=== PATIENT | male | born 1955 | race Caucasian/White ===

== ENCOUNTER 2022-11-18 09:04 | Day surgery (SDC) | payer OTHER, SELFPAY ==
[2022-11-14 13:34] VITALS: BMI 25.1
[2022-11-18] VITALS (18 sets, daily range): BP systolic 107–157; BP diastolic 61–89; PULSE 52–101; RESP 10–20; TEMP 36.3–37.2; O2SAT 95–100; BMI 25.1
--- NOTE | 2022-11-18 | PATH_ITS ---
[facility] Accession Number: [id number] No. of containers..01 Tissue . 01 Material submitted: . prostate - PROSTATE CHIPS . 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 MRV 11/20/2022 1222 Local . 01 Electronically signed: . Janay Hand MD, Pathologist NPI- [id number] . 01 Gross description: . The specimen is received in formalin labeled with the patient's name, , and prostate chips, and consists of multiple pink to john, rubbery tissue fragments aggregating to 6.2 x 6.4 x 1.2 cm and weighing 15 grams. No discrete lesions are identified. The specimen is submitted entirely in cassettes A1-A12. ([id number]) /ARIEL 11/19/2022 0947 Local . 01 Pathologist provided ICD-10: N32.0 . 01 CPT . 170352 Specimen Comment: A courtesy copy of this report has been sent to [phone] Performed at: 01 [facility] [address] [place] [address], [place], [place] [id number] MD Gentry Youssef MD Phone: [phone]
--- NOTE | 2022-11-18 09:16 | PM.PREOP ---
Pre-operative Note COVID-19 Criteria for continued procedure: Expected advancement of disease process, Possibility delay results in more complex future surgery or treatment, Deterioration of the patient's condition or overall health, Delay expected to result in less-positive ultimate med/surg outcome and Non-surgical alternatives not available or appropriate per current SOC Interval Note History & Physical reviewed/Exam performed by Physician: Yes Changes to H&P: No
[2022-11-18] MEDS: ACETAMINOPHEN IV 1,000 MG/100 ML VIAL 400 MG IV (09:31)
[2022-11-18] MEDS: LACTATED RINGERS 1,000 ML 21 ML IV (09:32)
[2022-11-18] MEDS: CEFAZOLIN 2 GM/100 ML PREMIX 100 ML IV (09:47)
[2022-11-18 09:52] LABS: COVID19 -Nasal RAPID Negative (Negative)
[2022-11-18] MEDS: TRANEXAMIC ACID 1,000 MG in SODIUM CHLORIDE 0.9% 100 ML 200 MG IV (10:05)
--- NOTE | 2022-11-18 10:09 | SUR.OPER ---
Lithotomy on padded OR bed, head on pillow, arms secured on padded arm boards at <90 degrees abduction. Legs secured in padded yellow fins stirrups.
--- NOTE | 2022-11-18 11:11 | P.OP_ITS ---
Operative Date/Time/Diagnoses Date of procedure: 11/18/22 Time of procedure: 11:05 Pre-op diagnosis: 1. Bladder outlet obstruction. 2. Failure medical therapy. Post-op diagnosis: same Procedure & Clinicians Procedure: 1. Transurethral resection of prostate. Same procedure as scheduled: Yes Indications: 1. Bladder outlet obstruction. 2. Failure medical therapy. Surgeon: Jordan Garcia Click Yes if Unassisted: Yes Anesthesia Type: General Operative Notes Findings: 1. Urethra-normal caliber without annular stricture or lesion. 2. External sphincter coapted with normal overlying urothelium. 3. Prostate-5 cm length with obstructing trilobar hyperplasia and markedly elevated median bar. 4. Bladder-normal orifices bilaterally with clear efflux urine there was no evidence of stone, diverticulum, neoplasm. Closure Type: not applicable Specimen(s): other (Prostate chips) Applied: catheter (24 [place] three-way to normal saline continuous bladder irrigation.) Estimated Blood Loss (mL): 5 Blood products transfused: none Procedure in detail: The patient was positioned supine and administered general anesthesia. He was then repositioned in semi lithotomy and the lower abdomen, genitalia, and groin were then prepped and draped sterile fashion. The resectoscope was then passed the lower urinary tract with the findings as described above under direct visualization. The resecting loop was then fitted to the scope resection of the prostate was undertaken at the 1:00 a.m. and 11 o'clock position from the bladder neck to level of the verumontanum. Depth to surgical capsule. Next, the intervening anterior tissue was resected illness similar manner. Now the left lateral lobe was resected from anterior towards posterior, followed by the right lateral lobe. Now I high median bar remaining resection was undertaken from the bladder neck to verumontanum. There was 1 small perforation posteriorly just distal to the bladder neck. All tissue was recovered using hydrostatic or physical mechanisms. The tissue was gathered and submitted to pathology for routine gross and microscopic examination. Hemostasis was excellent. The bladder was then partially filled and the resectoscope was removed. A [address] [place]er [address] hematuria catheter was then advanced in the lower urinary tract over a catheter guide. The balloon was inflated to 30 cc and was gently retracted so it lay snug against the bladder neck. The 3 way Knowles catheter was then hand irrigated and was clear at the outset. It was then placed to 3 way normal saline gravity irrigation. The patient was then repositioned in supine, was awakened, transferred to [facility], and transported recovery in stable condition. Complications: none Post-operative Condition: stable Disposition: PACU Plan for aftercare: Admit to acute care for outpatient with the bed.
[2022-11-18] MEDS: HYDROMORPHONE 2 MG INJ IV ×2 (11:39→11:45)
[2022-11-18] MEDS: hydrOXYzine pamoate 25 MG CAPSULE PO (11:40)
[2022-11-18] MEDS: ONDANSETRON 4 MG/2 ML INJ IV (11:40)
[2022-11-18] MEDS: OXYCODONE IR 5 MG TABLET PO (11:52)
--- NOTE | 2022-11-18 12:01 | SUR.PHASEI ---
pt to go to room 229, attempted to call report to the floor.
--- NOTE | 2022-11-18 12:06 | SUR.PHASEI ---
report called to floor
[2022-11-18] MEDS: LACTATED RINGERS 1,000 ML 125 ML IV ×2 (12:43→20:02)
--- NOTE | 2022-11-18 13:31 | PC.NURSE ---
Patient brought up from PACU to room 229 approx 1220. oriented to room and call light. VSS. Denies pain at this time. Continuous bladder irrigation in progress, patient's urine is currently very light pink to clear without clots seen at this time. Pad underneath patient was wet, all connection points checked and tightened, and pad changed, will continue to monitor. Patient not ready to eat at this time, but enjoying water and denies complaints. Call light within reach, will continue with plan of care.
[2022-11-18 14:04] LABS: MRSA (Nasal) PCR Not Detected (Not Detect)
[2022-11-18] MEDS: HYDROCODONE/ACET 5/325 TABLET 1 TAB PO ×2 (14:57→20:33)
[2022-11-18] MEDS: HYDROMORPHONE 0.5 MG INJ IV (20:45)
[2022-11-19] VITALS: BP 137/67; PULSE 49; RESP 16; TEMP 37.1; O2SAT 97
[2022-11-19] MEDS: HYDROCODONE/ACET 5/325 TABLET 1 TAB PO ×2 (02:56→08:55)
[2022-11-19] MEDS: LACTATED RINGERS 1,000 ML 125 ML IV (03:54)
[2022-11-19 04:00] VITALS: BP 142/81; PULSE 58; RESP 18; TEMP 37.1; O2SAT 100
--- NOTE | 2022-11-19 06:25 | PC.NURSE ---
Hand Almond Blancher Note-Continuous bladder irrigation patent throughout night, manual irrigation required once with effect, urine clear pink to yellow. Medicated with [place] as scheduled and IV Dilaudid once per prn. Patient dozed overnight, has moments of impulsiveness, is cooperative. HR 40s-50s when sleeping, 60s-80s while awake. VSS.
[2022-11-19 08:55] VITALS: BP 152/72; PULSE 56
[2022-11-19] MEDS: lisinopriL 20 MG TABLET 40 MG PO (08:55)
[2022-11-19] MEDS: AMLODIPINE 5 MG TABLET 10 MG PO (08:55)
[2022-11-19] MEDS: TAMSULOSIN 0.4 MG CAPSULE 0.8 MG PO (08:56)
[2022-11-19 09:55] VITALS: BP 144/73; PULSE 80
[2022-11-19] MEDS: METOPROLOL ER 50 MG TABLET PO (09:55)
[2022-11-19 10:55] VITALS: BP 138/70; PULSE 55
[2022-11-19 11:00] VITALS: BP 138/70; PULSE 55; RESP 16; TEMP 36.8; O2SAT 98
--- NOTE | 2022-11-19 14:10 | PC.NURSE ---
Patient switched from regular tirado catheter bag to leg bag around 1040. Draining red urine; no clots noted. Dr. Garcia came to see patient and gave D/C orders. D/C instructions and paperwork given to patient and . S/w Dr. Garcia to clarify whether patient is to continue to finasteride. Dr. Garcia states to finish current bottles of Finasteride and Tamsulosin, but not to refill. Told Patient and and wrote on paperwork. Pt rolled out to ED exit where his is pulling up. Patient in stable condition with all personal belongings.
--- NOTE | 2022-11-25 17:39 | PM.DS.1 ---
History of Present Illness History of Present Illness Date Patient Seen: 11/19/22 Time Patient Seen: 11:50 Chief complaint: Transurethral Resection Prostate Narrative: Patient is a 67-year-old male who was admitted yesterday and underwent uncomplicated Transurethral resection of the prostate for failure and the satisfaction of medical therapy due to bladder outlet obstruction. Discharge Providers Provider Date of admission: 11/18/2022 Discharge Date: 11/19/22 Primary care physician: HELGA Euceda Discharge provider: Jordan Garcia MD Summary Hospital Course Discharge Diagnosis: 1. Bladder outlet obstruction. 2. Failure medical therapy. Hospital Course: Patient was admitted on the morning of 11/18/2022 and underwent uncomplicated Transurethral resection of the prostate under general anesthesia. His postoperative course was entirely unremarkable in terms of his ability tolerated general diet, transfer and ambulate without assistance, and management of postoperative discomfort. On the morning of 11/19/2022, patient was stable for discharge. He was provided routine catheter care and use instruction. Pathology was pending at discharge. Exam Vital Signs (past 8 hours): Oxygen Delivery Method Room Air Oxygen Flow Rate 0 PFSH Medical History BPH w urinary obs/LUTS High blood pressure Male circumcision Family History Father Cancer Mother Diabetes mellitus Social History marital status: household members: spouse Smoking Status: Current every day smoker alcohol intake: current Type(s) of exercise: bicycling frequency: 3-4 times per week Discharge Assessment & Plan Assessment and Plan Assessment: Assessment: 1. Stable postoperative day 1 status post Transurethral resection of prostate. 2. Indwelling Knowles catheter. 3. Pathology pending. Plan: 1. Discharge to home today with indwelling Knowles catheter. 2. Follow-up pathology report as outpatient when final. Discharge Plan Discharge Plan Patient Disposition: Home Provider Discharge Comment: Please contact the urology clinic to schedule outpatient follow-up appointment. Discharge orders & Medications Discharge Orders: Discharge (Order); Ordered 11/19/22 Ordered By: Jordan Garcia Prescriptions: New cephalexin 250 mg capsule 250 mg PO TID Qty: 30 0RF oxycodone 5 mg tablet 5 mg PO Q4H PRN (Reason: pain) Qty: 10 0RF Continued lisinopril 40 mg tablet 40 mg PO DAILY amlodipine 10 mg tablet 10 mg PO DAILY metoprolol succinate 50 mg tablet extended release 24 hr 50 mg PO DAILY tamsulosin 0.4 mg capsule 0.8 mg PO DAILY aspirin [Adult Aspirin Regimen] 81 mg tablet,delayed release (DR/EC) 81 mg PO DAILY hydrocodone-acetaminophen 5-325 mg tablet 1 tab PO Q4-6H Follow up/Referrals: Jordan Garcia MD [Physician] - Madhuri Milton ARNP [Primary Care Provider] - Diet/Activity/Treatments Diet: Diet as Tolerated Activity: Get up and walk around house for 5-10 minutes six times a day Catheter: 2-way Knowles Catheter comment: Leg bag-when out of home. Large back-when in-home and during night. Skin/Wound/Dressing Care Skin care: May shower daily. Report to your healthcare provider any signs of infection, such as:: chills, fever, night sweats, increased pain and unusual drainage Visit Report/Discharge Packet Instructions: How to Care for Your Knowles Catheter -- Male, DI for Transurethral Resection of the Prostate Stand Alone Forms: Congestive Heart Failure, Stroke Signs & Symptoms, Surgery Discharge Discharge Data Primary Care Provider: Madhuri Milton Attending Provider: Jordan Garcia Quality VTE Deep Vein Thrombosis/Pulmonary Embolism Present on Admission: No
== END 2022-11-19 14:06 | disposition home or self-care (01) ==
LOC: OR 09:05 → AC 09:06 → ICU 12:28
PROVIDERS: PCP Registered Nurse; Referring Provider Specialist; Visit Provider Specialist
PROC: 0VT08ZZ Resection of Prostate, Via Natural or Artificial Opening Endoscopic (ICD-10-PCS; CPT 52601; principal; 2022-11-18 09:15)
DX: N32.0 Bladder-neck obstruction (principal); N13.8 Other obstructive and reflux uropathy; N40.1 Benign prostatic hyperplasia with lower urinary tract symptoms; Z20.822 Contact with and (suspected) exposure to COVID-19
CPT/HCPCS: 52601; 87635; 87797; C9803; J0131; J0690; J1100; J1170; J2250; J2405; J2704; J3010

== ENCOUNTER → 2022-12-26 09:28 | Outpatient (CLI) | payer OTHER, SELFPAY ==
[2022-11-26 08:49] VITALS: BMI 25.1
== END ==
PROVIDERS: PCP Registered Nurse; Visit Provider Specialist
DX: N40.1 Benign prostatic hyperplasia with lower urinary tract symptoms (principal); N13.8 Other obstructive and reflux uropathy; Z09 Encounter for follow-up examination after completed treatment for conditions other than malignant neoplasm
CPT/HCPCS: 51798; 81002; 87086

== ENCOUNTER → 2023-03-27 09:17 | Outpatient (CLI) | payer OTHER, SELFPAY ==
[2022-11-26 08:49] VITALS: BMI 25.1
== END ==
PROVIDERS: PCP Registered Nurse; Visit Provider Specialist
DX: N40.1 Benign prostatic hyperplasia with lower urinary tract symptoms (principal); N13.8 Other obstructive and reflux uropathy
CPT/HCPCS: 51798; 81002; 87077; 87086; 87186; 99213